=== PATIENT | male | born 1975 ===

== ENCOUNTER 2025-04-02 14:05 | Outpatient (AMB) | payer MEDICARE, SELFPAY ==
[2025-04-02 14:16] VITALS: BMI 33.5
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
--- OUTSIDE RECORDS SUMMARY | 2025-04-02 19:28 | XMS_ITS | Encounter Summary ---
Author Organization [facility] [employer] [facility] Prior to 02/29/2024 Address [facility] [place] [address] Care Team Providers Care Supervisor Coffee Name Role Phone Amita Cohn MD Primary Care Provider [phone] Encounter Details Date Type Department Care Team Description 11/21/2022 International Sales Manager Report Medical Records [address] [place] [address] Humble Myers DO Social History Tobacco Use Types Packs/Day Years Used Date Smoking Tobacco: Former Cigarettes 1 10 Smokeless Tobacco: Current Alcohol Use Standard Drinks/Week Comments No 0 (1 standard drink = 0.6 oz pur e alcohol) past heavy use Sex Assigned at Date Recorded Not on file documented as of this encounter Plan of Treatment Not on file documented as of this encounter Visit Diagnoses Not on filedocumented in this encounter Care Teams Supervisor Coffee Relationship Specialty Start Date End Date Amita Cohn MD [address] [place], [place] [phone] PCP - General Internal Medicine 01/26/21 documented as of this encounter
--- OUTSIDE RECORDS SUMMARY | 2025-04-02 19:28 | XMS_ITS | Encounter Summary ---
Author Organization [facility] [employer] [facility] Prior to 02/29/2024 Address [address] [place] [address] Care Team Providers Care Sailing Master Name Role Phone Makenzie Cyr MD Primary Care Provider Terra Amita Castillo MD Primary Care Provider [phone] Encounter Details Date Type Department Care Team Description 08/20/2014 Hospital Medical Records [address] [place] [address] And [facility]' Social History Tobacco Use Types Packs/Day Years [...] on filedocumented in this encounter Care Teams Sailing Master Relationship Specialty Start Date End Date Makenzie Cyr MD PCP - General Internal Medicine 06/18/18 1 Amita Cohn MD [address] [place] [address] PCP - General Internal Medicine 01/26/21 documented as of this encounter
--- OUTSIDE RECORDS SUMMARY | 2025-04-02 19:28 | XMS_ITS | Encounter Summary ---
Author Organization [facility] [employer] [facility] Prior to 02/29/2024 Address [address] [place] [address] Care Team Providers Care Suit Maker Name Role Phone Makenzie Cyr MD Primary Care Provider Terra Amita Castillo MD Primary Care Provider [phone] Encounter Details Date Type Department Care Team Description 08/04/2014 Hospital Medical Records [address] [place] [address] And [facility]' Social History Tobacco Use Types Packs/Day [...] on filedocumented in this encounter Care Teams Suit Maker Relationship Specialty Start Date End Date Makenzie Cyr MD PCP - General Internal Medicine 06/18/18 1 Amita Cohn MD [address] [place] [address] PCP - General Internal Medicine 01/26/21 documented as of this encounter
--- OUTSIDE RECORDS SUMMARY | 2025-04-02 19:28 | XMS_ITS | Encounter Summary ---
Author Organization [facility] Prior to 02/29/2024 Address [address] [place] [address] Care Team Providers Care Orthopedic Nurse Name Role Phone Makenzie Cyr MD Primary Care Provider Terra Amita Castillo MD Primary Care Provider Encounter Details Date Type Department Care Team Description 02/17/2019 Refill Physiatry - [address] [address] Humble Myers DO Social History Tobacco Use [...] on filedocumented in this encounter Care Teams Orthopedic Nurse Relationship Specialty Start Date End Date Makenzie Cyr MD PCP - General Internal Medicine 06/18/18 1 Amita Cohn MD [address] [place] [id number] PCP - General Internal Medicine 01/26/21 documented as of this encounter
--- OUTSIDE RECORDS SUMMARY | 2025-04-02 19:28 | XMS_ITS | Encounter Summary ---
Author Organization [facility] Prior to 02/29/2024 Address [address] [place] [address] Care Team Providers Care Cna Hha Name Role Phone Makenzie Cyr MD Primary Care Provider Amita Shay MD Primary Care Provider Reason for Referral * Non ANDRAE (Urgent) - Authorized/Booked Specialty Diagnoses / Procedures Referred By Chi li Referred To Contact Pulmonology Procedures REFERRAL TO PULMONOLOGY Estuardo Mijares PA-C [address] [place] [address] Ronnie Lundy MD [address] [place] [id number] Referral ID Status Reason Start Date Expiration Date V isits Requested Visits Authorized [id number] Authorized/B ooked 02/18/2020 02/17/2021 12 12 Encounter Details Date Type Department Care Team Description 02/18/2020 Orders Only Medicine/Pediatrics - [address] [phone] Estuardo Mijares PA-C Chronic cough (Primary Dx); Syncope, unspecified syncope type Social History Tobacco Use Types Packs/Day Years Used Date Smoking Tobacco: Former Cigarettes 1 10 Smokeless Tobacco: Current Alcohol Use Standard Drinks/Week Comments No 0 (1 standard drink = 0.6 oz pur e alcohol) past heavy use Sex Assigned at Date Recorded Not on file COVID-19 Exposure Response Date Recorded In the last month, have you been in contact with someone who was confirmed or suspected to have Coronavirus / COVID-19? No / Unsure 02/20/2020 2:57 PM EDT documented as of this encounter Plan of Treatment Scheduled Orders Name Type Priority Associated Diagnoses Orde r Schedule PFT FULL (60 MINUTES) Pulmonology Routine Chronic cough Syncope, unspecified syncope type Expected: 02/18/2020, Expires: 02/17/2021 documented as of this encounter Visit Diagnoses Diagnosis Chronic cough- Primary Cough Syncope, unspecified syncope type documented in this encounter Care Teams Cna Hha Relationship Specialty Start Date End Date Makenzie Cyr MD PCP - General Internal Medicine 06/18/18 1 Amita Cohn MD [address] [place] [address] PCP - General Internal Medicine 01/26/21 documented as of this encounter
--- OUTSIDE RECORDS SUMMARY | 2025-04-02 19:28 | XMS_ITS | Encounter Summary ---
Author Organization [facility] [employer] [facility] Prior to 02/29/2024 Address [address] [place] [address] Care Team Providers Care General Internist Name Role Phone Amita Cohn MD Primary Care Provider [phone] Encounter Details Date Type Department Care Team Description 05/17/2023 [employer] Crewmember Report Medical Records [address] [place] [address] Humble Myers DO Social History Tobacco Use [...] on filedocumented in this encounter Care Teams General Internist Relationship Specialty Start Date End Date Amita Cohn MD [address] [place], [place] [phone] PCP - General Internal Medicine 01/26/21 documented as of this encounter
--- OUTSIDE RECORDS SUMMARY | 2025-04-02 19:28 | XMS_ITS ---
Author Name [facility] Organization Unknown Care Team Organization Name Specialty Phone Email Start Date End Da te [facility] Termed, PROVIDER Primary Care 10/06/202211/28 [facility] Jossy Mehta Primary Care 03/07/2022
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
--- OUTSIDE RECORDS SUMMARY | 2025-04-02 19:28 | XMS_ITS | Encounter Summary ---
Author Organization [facility] [employer] [facility] Prior to 02/29/2024 Address [address] [place] [address] Care Team Providers Care Community Life Director Name Role Phone Makenzie Cyr MD Primary Care Provider Terra Amita Castillo MD Primary Care Provider [phone] Encounter Details Date Type Department Care Team Description 11/22/2014 Hospital Medical Records [address] [place] [address] And [facility]' Social History Tobacco Use Types Packs/Day Years [...] on filedocumented in this encounter Care Teams Community Life Director Relationship Specialty Start Date End Date Makenzie Cyr MD PCP - General Internal Medicine 06/18/18 1 Amita Cohn MD [address] [place] [address] PCP - General Internal Medicine 01/26/21 documented as of this encounter
== END 2025-04-02 14:31 | disposition home or self-care (01) ==
LOC: HO.HPHYS 14:06
PROVIDERS: PCP Family Medicine; Visit Provider Physical Medicine & Rehabilitation
DX: G56.42 Causalgia of left upper limb (principal); G89.4 Chronic pain syndrome; Z79.891 Long term (current) use of opiate analgesic
CPT/HCPCS: 99214; G2211

== ENCOUNTER → 2025-04-02 14:05 | Outpatient (BNVA) | payer MEDICARE, SELFPAY | PROVIDERS: PCP Family Medicine; Visit Provider Physical Medicine & Rehabilitation | DX: G56.42 Causalgia of left upper limb (principal); G89.4 Chronic pain syndrome; Z79.891 Long term (current) use of opiate analgesic | CPT/HCPCS: 99212 ==